=== PATIENT | female | born 1945 | race African-American/Black ===

== ENCOUNTER 2018-06-06 11:04 | Day surgery (SDC) | payer OTHER ==
[2018-06-03 17:27] VITALS: BMI 30.2
[2018-06-06] MEDS ORDERED: MIDAZOLAM HCL 2 MG/2 ML SINGLE DOSE VIAL ONE (13:39)
--- NOTE | 2018-06-06 14:03 | HP ---
History & Physical Update - History History: No Change - Physical Physical: No Change - Assessment Assessment: No Change - Plan Plan: No Change (for excision of lesion left inframammary fold; r/b/t/ d/w the patient pre-op; consent obtained.)
[2018-06-06] MEDS ORDERED: LIDOCAINE HCL 1%, 10 MG/ML (20ML VIAL) ONE ×2 (14:16→14:20)
[2018-06-06] MEDS ORDERED: BUPIVACAINE HCL/PF 0.5% (5MG/ML) 10 ML VIAL ONE ×2 (14:17→14:20)
[2018-06-06] MEDS ORDERED: oxyCODONE HCL 5 MG TABLET PO PRN (14:48)
[2018-06-06] MEDS ORDERED: ONDANSETRON 4 MG/2 ML VIAL IVPUSH PRN (14:48)
[2018-06-06] MEDS ORDERED: LACTATED RINGERS SOLUTION 1,000 ML IV SCH (15:00)
[2018-06-06] MEDS ORDERED: LIDOCAINE HCL 1%, 10 MG/ML (20ML VIAL) INF ONE (15:54)
[2018-06-06] MEDS ORDERED: BUPIVACAINE HCL/PF 0.5% (5MG/ML) 10 ML VIAL IJ ONE (15:54)
--- NOTE | 2018-06-06 15:58 | OP ---
Operative Note - Note: Operative Date: 06/06/18 Pre-Operative Diagnosis: skin lesion left inframammary fold Operation: excision skin lesion left inframmamry fold Findings: senaceous cyst and scarred skin Surgeon: Micheal Fofana Anesthesiologist/NANOTECHNOLOGIST: Dax Cueto Anesthesia: MAC Specimens Removed: skin lesion left inframammary fold Estimated Blood Loss (mls): 0
[2018-06-06 18:25] VITALS: BP 111/76; PULSE 80; TEMP 98
--- NOTE | 2018-06-08 10:33 | OP ---
DATE OF OPERATION: 06/06/2018 PREOPERATIVE DIAGNOSIS: Skin lesion of the left inframammary fold. POSTOPERATIVE DIAGNOSIS: Skin lesion of the left inframammary fold. PROCEDURE: Excision of skin lesion, left inframammary fold. SURGEON: Micheal Fofana MD ANESTHESIA: Local with IV sedation. OPERATIVE FINDINGS: There was a sebaceous cyst in the left inframammary fold with evidence of previous infection and scarring. The rest of the findings were unremarkable. PROCEDURE: The patient was placed on the operating room table in supine position, and the area under the left breast was prepped with ChloraPrep and draped in sterile fashion. A timeout was taken, and an elliptical skin incision mapped out around the lesion. The area was infiltrated with 1% xylocaine and 0.5% Marcaine in equal concentration. Incision was carried out with a scalpel and the skin incised and the incision taken down through skin, subcutaneous tissue, and fat. This was taken down almost to the chest wall. The specimen was then passed off the operative field and sent for pathological examination. Hemostasis was secured with electrocautery, and the wound irrigated with sterile saline. Hemostasis was again verified, and then the deep dermis was reapproximated with interrupted 3-0 Vicryl and the skin edges with 3-0 Prolene vertical mattress sutures. Dry sterile dressings were placed, and the procedure terminated at this point, and the patient transferred to the postanesthesia care unit in stable condition awake and alert. ESTIMATED BLOOD LOSS: Minimal. DRAINS: None. SPECIMEN: Skin lesion from the left inframammary fold to Pathology. I, Micheal Fofana MD, was physically present in the operating room from the time the patient was placed on the operating room table until she was transferred to the postanesthesia care unit in my accompaniment. MD HAFSA Yeboah/[id number]
--- NOTE | 2018-06-08 12:06 | PATH ---
Surgical Pathology Report Patient Name: ORA COPE [facility]. Rec. #: [id number] /Age/Gender: 1945 (Age: 72) / F Account: [id number] Location: [facility] SURGICAL Taken: 06/06/2018 Received: 06/07/2018 Reported: 06/08/2018 Physicians: Micheal Fofana MD Specimen(s) Received SKIN LESION Clinical History Skin lesion left inframammary fold Final Diagnosis SKIN, LEFT INFRAMAMMARY FOLD, EXCISION: BENIGN SKIN WITH EPIDERMAL INCLUSION CYST AND DERMAL SCAR. Electronically Signed Manpreet Mcintyre M.D. Gross Description Received in formalin labeled "left inframammary fold," is a 3.2 x 1.4 cm brown, elliptical, unoriented portion of skin excised to a depth of 1.1 cm. The epidermal surface displays a focal invagination. Sectioning reveals a possible cystic structure. Radio [employer]ic sections are submitted in one cassette. /06/07/2018 saudi/06/07/2018
== END 2018-06-06 18:29 | disposition home or self-care (01) ==
LOC: JASU-SURG 11:04
PROVIDERS: ATTEND Surgery
PROC: 0HB5XZZ Excision of Chest Skin, External Approach (ICD-10-PCS; principal; 2018-06-06 12:30)
DX: L72.3 Sebaceous cyst (principal); I10 Essential (primary) hypertension; R73.03 Prediabetes
CPT/HCPCS: 88304-TC; 94760

== ENCOUNTER 2022-01-23 04:36 | Day surgery (SDC) | payer OTHER ==
[2022-01-21 15:18] VITALS: BMI 30.9
[2022-01-23 10:35] VITALS: TEMP 98
[2022-01-23 11:21] VITALS: BP 134/73; PULSE 72; RESP 19
== END 2022-01-23 12:03 | disposition home or self-care (01) ==
LOC: JASU-ENDO 04:36
PROVIDERS: ATTEND Internal Medicine Gastroenterology
PROC: 0DBH8ZX Excision of Cecum, Via Natural or Artificial Opening Endoscopic, Diagnostic (ICD-10-PCS; 2022-01-23)
PROC: 0DBL8ZX Excision of Transverse Colon, Via Natural or Artificial Opening Endoscopic, Diagnostic (ICD-10-PCS; principal; 2022-01-23 10:00)
DX: Z12.11 Encounter for screening for malignant neoplasm of colon (principal); D12.0 Benign neoplasm of cecum; D12.3 Benign neoplasm of transverse colon; K64.8 Other hemorrhoids; K59.89 Other specified functional intestinal disorders; K59.09 Other constipation
CPT/HCPCS: 88305-TC

== ENCOUNTER 2022-10-23 05:12 | Day surgery (SDC) | payer OTHER ==
[2022-10-21 10:59] VITALS: BMI 30.2
[2022-10-23 10:56] VITALS: RESP 20
[2022-10-23] MEDS ORDERED: ACETAMINOPHEN 500 MG TABLET (FP) PO PRN (13:57)
[2022-10-23 14:48] VITALS: BP 135/77; PULSE 57; TEMP 98.6
== END 2022-10-23 13:19 | disposition home or self-care (01) ==
LOC: JASU-SURG 05:12
PROVIDERS: ATTEND Pain Medicine Pain Medicine
PROC: 3E0U3BZ Introduction of Anesthetic Agent into Joints, Percutaneous Approach (ICD-10-PCS; 2022-10-23)
PROC: 3E0U33Z Introduction of Anti-inflammatory into Joints, Percutaneous Approach (ICD-10-PCS; principal; 2022-10-23 12:45)
DX: M53.3 Sacrococcygeal disorders, not elsewhere classified (principal)
CPT/HCPCS: 76000-TC-FY

== ENCOUNTER 2022-12-22 04:24 | Day surgery (SDC) | payer OTHER ==
[2022-12-21 14:32] VITALS: BMI 27.8
[~2022-12-22 04:24] MED LIST: ACETAMINOPHEN 500 MG TABLET (FP) PO PRN
[2022-12-22] MEDS ORDERED: LIDOCAINE HCL/PF 1% SDV 5ML VIAL ONE (07:16)
[2022-12-22] MEDS ORDERED: DEXAMETHASONE SOD PHOSPHATE 10 MG/1 ML VIAL ONE (07:16)
[2022-12-22 08:18] VITALS: RESP 18
[2022-12-22] MEDS ORDERED: LIDOCAINE HCL 1% PRESERVATIVE FREE - 30ML VIAL IJ ONE (09:34)
[2022-12-22] MEDS ORDERED: IOHEXOL 180 MG/1 ML ML IJ ONE (09:36)
[2022-12-22] MEDS ORDERED: DEXAMETHASONE SOD PHOSPHATE 10 MG/1 ML VIAL IVPUSH ONE (09:37)
[2022-12-22 10:41] VITALS: BP 139/78; PULSE 69; TEMP 97.7
[2022-12-22] MEDS ORDERED: ACETAMINOPHEN 500 MG TABLET (FP) PO PRN (14:00)
== END 2022-12-22 10:35 | disposition home or self-care (01) ==
LOC: JASU-SURG 04:24
PROVIDERS: ATTEND Pain Medicine Pain Medicine
PROC: 3E0R3BZ Introduction of Anesthetic Agent into Spinal Canal, Percutaneous Approach (ICD-10-PCS; 2022-12-22)
PROC: 3E0R33Z Introduction of Anti-inflammatory into Spinal Canal, Percutaneous Approach (ICD-10-PCS; principal; 2022-12-22 09:30)
DX: M54.16 Radiculopathy, lumbar region (principal); M48.061 Spinal stenosis, lumbar region without neurogenic claudication
CPT/HCPCS: 76000-TC-FY; J1100

== ENCOUNTER 2024-01-02 19:33 | Inpatient (IN) | payer OTHER ==
[2024-01-02] MEDS ORDERED: ACETAMINOPHEN INJECTION 100 ML ONE (20:26)
[2024-01-02] MEDS: SODIUM CHLORIDE 1,000 ML IV SCH (20:43)
[2024-01-02] MEDS: ACETAMINOPHEN 1000 MG/100 ML BAG IVPB ONE (20:43)
[2024-01-02 20:54] LABS: BASO % 0.7 % (0-2.0); EOS % 0.1 % (0-4.5); HEMATOCRIT 33.9 % (32.4-45.2); HEMOGLOBIN 11.7 GM/dL (10.7-15.3); LYMPH % 12.8 % (8-40); MCH 31.5 pg (25.7-33.7); MCHC 34.5 g/dl (32.0-36.0); MEAN CELL VOLUME 91.1 fl (80-96); MEAN PLT VOLUME 7.8 fl (7.5-11.1); MONO % 8.8 % (3.8-10.2); NEUT % 77.6 % (42.8-82.8); PLATELET COUNT 211 10^3/uL (134-434); RBC 3.72 M/mm3 (3.60-5.2); WHITE BLOOD COUNT 9.1 K/mm3 (4.0-10.0)
[2024-01-02 21:09] LABS: CALCIUM 9.2 mg/dL (8.5-10.1)
[2024-01-02 21:11] LABS: ALBUMIN 3.4 g/dl (3.4-5.0)
[2024-01-02 21:14] LABS: CREATININE 0.9 mg/dL (0.55-1.3)
[2024-01-02 21:15] LABS: TOT PROT 7.1 g/dl (6.4-8.2); URINE APPEARANCE CLOUDY; URINE BILIRUBIN NEGATIVE (NEGATIVE); URINE COLOR YELLOW; URINE GLUCOSE (UA) NEGATIVE (NEGATIVE); URINE KETONE 1+ (NEGATIVE); URINE LEUK ESTERASE NEGATIVE (NEGATIVE); URINE NITRITE NEGATIVE (NEGATIVE); URINE PROTEIN NEGATIVE (NEGATIVE)
[2024-01-02 21:30] LABS: INR 1.18 (0.83-1.09); PROTHROMBIN TIME (PATIENT) 13.3 SEC (9.7-13.0)
[2024-01-02 21:33] LABS: ACTIVATED PTT 28.2 SECONDS (25.2-36.5)
[2024-01-02] MEDS ORDERED: AZITHROMYCIN IVPB 500 MG/250 ML BAG IVPB ONE (22:29)
[2024-01-02] MEDS ORDERED: CEFTRIAXONE 1 GM/50 ML BAG ONE (22:29)
[2024-01-02] MEDS: CEFTRIAXONE 1 GM in DEXTROSE 5%-WATER - 100 ML IVPB ONE (22:47)
[2024-01-02] MEDS: AZITHROMYCIN IVPB 500 MG in DEXTROSE 5%-WATER - 250 ML IVPB ONE (22:50)
[2024-01-03 08:28] LABS: BASO % 0.5 % (0-2.0); EOS % 0.4 % (0-4.5); HEMATOCRIT 32.1 % (32.4-45.2); HEMOGLOBIN 11.2 GM/dL (10.7-15.3); LYMPH % 20.8 % (8-40); MCH 31.7 pg (25.7-33.7); MCHC 34.8 g/dl (32.0-36.0); MEAN CELL VOLUME 91.2 fl (80-96); MEAN PLT VOLUME 8.1 fl (7.5-11.1); MONO % 8.6 % (3.8-10.2); NEUT % 69.7 % (42.8-82.8); PLATELET COUNT 208 10^3/uL (134-434); RBC 3.52 M/mm3 (3.60-5.2); RDW 14.1 % (11.6-15.6); WHITE BLOOD COUNT 8.9 K/mm3 (4.0-10.0)
[2024-01-03 09:52] LABS: POTASSIUM 3.9 mmol/L (3.5-5.1)
[2024-01-03 09:54] LABS: BLOOD UREA NITROGEN 12.3 mg/dL (7-18); CALCIUM 9.2 mg/dL (8.5-10.1)
[2024-01-03 09:57] LABS: CREATININE 0.9 mg/dL (0.55-1.3)
[2024-01-03] MEDS ORDERED: CEFTRIAXONE 1 GM/50 ML BAG ONE (10:20)
[2024-01-03] MEDS ORDERED: AZITHROMYCIN IVPB 500 MG/250 ML BAG IVPB ONE (10:21)
[2024-01-03] MEDS: CEFTRIAXONE 1 GM in DEXTROSE 5%-WATER - 50 ML IVPB SCH (10:55)
[2024-01-03] MEDS: AZITHROMYCIN IVPB 500 MG/250 ML BAG IVPB SCH (10:56)
[2024-01-03] MEDS ORDERED: ACETAMINOPHEN INJECTION 100 ML ONE (11:53)
[2024-01-03] MEDS: ACETAMINOPHEN 1000 MG/100 ML BAG IVPB PRN (13:21)
[2024-01-03] MEDS ORDERED: VERAPAMIL HCL 180 MG E.R. TABLET PO SCH (22:00)
[2024-01-04] MEDS: VERAPAMIL HCL PO SCH (00:28)
[2024-01-04] MEDS: ROSUVASTATIN CA 10 MG TABLET PO SCH (00:29)
[2024-01-04] MEDS: LORazepam 2 MG/ML SDV VIAL IVPUSH ONE (00:31)
[2024-01-04] MEDS: CEFTRIAXONE 1 G/50 ML PREMIX 50 ML IVPB SCH ×2 (13:25)
[2024-01-04 22:57] LABS: BASO % 0.4 % (0-2.0); EOS % 0.9 % (0-4.5); HEMATOCRIT 36.9 % (32.4-45.2); HEMOGLOBIN 12.4 GM/dL (10.7-15.3); MCH 30.5 pg (25.7-33.7); MCHC 33.5 g/dl (32.0-36.0); MEAN PLT VOLUME 7.6 fl (7.5-11.1); MONO % 8.7 % (3.8-10.2); PLATELET COUNT 260 10^3/uL (134-434); RBC 4.06 M/mm3 (3.60-5.2)
[2024-01-04] MEDS: SODIUM CHLORIDE 1,000 ML IV SCH (23:28)
[2024-01-04] MEDS: levETIRAcetam 500 MG/5 ML INJECTION VIAL IVPB ONE (23:28)
[2024-01-04 23:51] LABS: MAGNESIUM 2.1 mg/dL (1.8-2.4)
[2024-01-04 23:53] LABS: ALBUMIN 3.5 g/dl (3.4-5.0)
[2024-01-04 23:54] LABS: BLOOD UREA NITROGEN 13.2 mg/dL (7-18)
[2024-01-04 23:55] LABS: CALCIUM 9.9 mg/dL (8.5-10.1)
[2024-01-04 23:56] LABS: TOT PROT 7.2 g/dl (6.4-8.2)
[2024-01-04 23:57] LABS: PHOSPHOROUS 3.4 mg/dL (2.5-4.9)
[2024-01-04 23:59] LABS: POTASSIUM 3.6 mmol/L (3.5-5.1)
[2024-01-05 00:22] LABS: BILIRUBIN,TOTAL 1.1 mg/dL (0.2-1)
[2024-01-05] MEDS ORDERED: CEFTRIAXONE 1 G/50 ML PREMIX 50 ML IVPB SCH (10:00)
[2024-01-06] MEDS: ACETAMINOPHEN 325 MG TABLET (FP) PO PRN (23:15)
[2024-01-06] MEDS: levETIRAcetam 250 MG TABLET PO SCH (23:15)
[2024-01-07] MEDS: LORazepam 0.5 MG TABLET PO ONE (01:21)
[2024-01-07] MEDS: THIAMINE HCL 200 MG/2 ML VIAL IVPB SCH (01:36)
[2024-01-08] MEDS: AZITHROMYCIN IVPB 500 MG/250 ML BAG IVPB SCH (11:46)
[2024-01-09] MEDS: CEFUROXIME AXETIL 500 MG TABLET PO SCH (22:17)
[2024-01-10 07:01] LABS: BASO % 0.6 % (0-2.0); EOS % 3.4 % (0-4.5); HEMATOCRIT 32.8 % (32.4-45.2); HEMOGLOBIN 10.7 GM/dL (10.7-15.3); LYMPH % 20.9 % (8-40); MCH 30.7 pg (25.7-33.7); MCHC 32.7 g/dl (32.0-36.0); MEAN CELL VOLUME 93.7 fl (80-96); MONO % 9.7 % (3.8-10.2); NEUT % 65.4 % (42.8-82.8); PLATELET COUNT 260 10^3/uL (134-434); RDW 14.3 % (11.6-15.6); WHITE BLOOD COUNT 5.2 K/mm3 (4.0-10.0)
[2024-01-10 07:08] LABS: POTASSIUM 3.8 mmol/L (3.5-5.1)
[2024-01-10 07:13] LABS: CALCIUM 8.9 mg/dL (8.5-10.1)
[2024-01-10 07:14] LABS: BLOOD UREA NITROGEN 9.2 mg/dL (7-18)
[2024-01-10 07:17] LABS: CREATININE 0.8 mg/dL (0.55-1.3)
[2024-01-10 07:18] LABS: BILIRUBIN,TOTAL 0.6 mg/dL (0.2-1); TOT PROT 5.7 g/dl (6.4-8.2)
[2024-01-10 07:21] LABS: ALBUMIN 2.6 g/dl (3.4-5.0)
[2024-01-12 09:31] VITALS: BP 124/62; PULSE 74; RESP 18; TEMP 98.6
[2024-01-12 10:55] VITALS: BMI 27.3
== END 2024-01-12 12:30 | DRG 70 ==
LOC: JER 19:33 → JERBED 23:58 → J4W 01-03 15:34 → OBSVTOIN 01-05 08:15
PROVIDERS: ADMIT Internal Medicine; ATTEND Family Medicine
DX: G93.41 Metabolic encephalopathy (principal); I63.9 Cerebral infarction, unspecified; J18.9 Pneumonia, unspecified organism; E78.5 Hyperlipidemia, unspecified; R73.03 Prediabetes; R09.89 Other specified symptoms and signs involving the circulatory and respiratory systems
CPT/HCPCS: 0241U-QW; 36415; 70450-TC; 70496-TC; 70498-TC; 70551-TC; 71045-TC-FY; 80048; 80053; 80061; 81003; 82550; 83036; 83735; 84100; 84146; 84443; 84484; 85025; 85610; 85730; 86850; 86900; 86901; 87040; 87086; 87899; 93005; 93010; 95816; 97116-GP; 97163-GP; 99285-25; G0378; J0131; Q9967